=== PATIENT | female | born 1990 | race Caucasian/White ===

== ENCOUNTER 2016-08-02 02:16 | Emergency (ER) | payer SELFPAY ==
[~2016-08-02] VITALS: Ht 152.4 cm; Wt 52.5 kg
[2016-08-02 02:19] VITALS: Ht 152.4 cm; Wt 52.5 kg
--- NOTE | 2016-08-02 04:23 | ERD ---
ER Documentation Chief Complaint Date/Time DATE: 08/02/16 TIME: 04:20 Chief Complaint redness to both eyes x 1 day HPI 26-year-old female presents here in emergency department for complaints of bilateral eye redness started yesterday. It started with one eye, right eye, then the left eye also got the same symptoms. Patient has been having purulent discharge from both eyes. Patient denies any eye pain. Patient complaining of itching from both eyes. Patient denies any vision changes. Patient denies any foreign body sensation. She did not take any medications of symptoms. ROS All systems reviewed and are negative except as per history of present illness. Medications Home Meds Reported Medications [none] Unknown Strength No Conflict Check 08/02/16 Allergies Allergies: Coded Allergies: No Known Allergy (Unverified , 08/02/16) PMhx/Soc Medical and Surgical Hx: pt denies Medical Hx, pt denies Surgical Hx History of Surgery: No Anesthesia Reaction: No Hx Neurological Disorder: No Hx Respiratory Disorders: No Hx Cardiac Disorders: No Hx Psychiatric Problems: No Hx Miscellaneous Medical Probl: No (PT. DENIES MEDICAL AND SURGICAL HX.) Hx Alcohol Use: No Hx Substance Use: No Hx Tobacco Use: No Smoking Status: Never smoker FmHx Family History: No coronary disease, No diabetes, No other Physical Exam Vitals Vital Signs Date Time Temp Pulse Resp B/P Pulse Ox O2 Delivery O2 Flow Rate FiO2 08/02/16 02:19 98.3 87 20 135/69 100 Physical Exam GENERAL: The patient is well developed and appropriate for usual state of health, in no apparent distress. HEENT: Atraumatic. Bilateral conjunctiva noted to be erythematous with purulent discharge from both eyes. Bilateral eyes are PERRL EOM intact. Ears: Normal tympanic membrane, no erythema or bulging. No ear canal swelling. No ear discharge. Nose: normal nasal turbinates, no erythema or swelling. Normal nasal discharge. Throat: oropharynx clear. No tonsillar swelling or tonsillar exudates. No lymphadenopathy. CHEST: Clear to auscultation bilaterally. There are no rales, wheezes or rhonchi. HEART: Regular rate and rhythm. No murmurs, clicks, rubs or gallops. No S3 or S4. ABDOMEN: Soft, nontender and nondistended. Good bowel sounds. No rebound or guarding. No gross peritonitis. No gross organomegaly or masses. No Johnson sign or McBurney point tenderness. BACK: No midline or flank tenderness. EXTREMITIES: Equal pulses bilaterally. There is no peripheral clubbing, cyanosis or edema. No focal swelling or erythema. Full range of motion. Grossly neurovascularly intact. NEURO: Alert and oriented. Cranial nerves 2-12 intact. Motor strength in all 4 extremities with 5/5 strength. Sensation grossly intact. Normal speech and gait. SKIN: There is no apparent rash or petechia. The skin is warm and dry. HEMATOLOGIC AND LYMPHATIC: There is no evidence of excessive bruising or lymphedema. No gross cervical, axillary, or inguinal lymphadenopathy. Procedures/MDM Medical decision making: Patient's symptoms most likely consistent with bilateral conjunctivitis, bacterial, no symptoms of any other eye emergencies at this time. No vision changes. No foreign body sensation. No suspicion for retinal detachment, acute closed angle glaucoma. Patient was given for Polytrim eyedrops, is advised to avoid itching the eyes, was given Naphcon ophthalmic solution, is advised to follow-up with primary care doctor in 2-3 days, contagious within 24 hours, patient was advised to return to emergency department for any worsening symptoms. Departure Diagnosis: Primary Impression: Bacterial conjunctivitis of both eyes Condition: Stable Patient Instructions: Conjunctivitis, Bacterial Additional Instructions: . Patient was given for Polytrim eyedrops, is advised to avoid itching the eyes , was given Naphcon ophthalmic solution, is advised to follow-up with primary care doctor in 2-3 days, contagious within 24 hours, patient was advised to return to emergency department for any worsening symptoms. OSWALDO GLOVER NP Aug 02, 2016 04:22
[2016-08-02] MEDS ORDERED: NAPH15DR22 BOTH EYES (04:24)
[2016-08-02] MEDS ORDERED: POLY10DR19 BOTH EYES (04:24)
== END 2016-08-02 04:49 | disposition home or self-care (01) ==
LOC: FTE 02:16
DX: H10.9 Unspecified conjunctivitis (principal)
CPT/HCPCS: 99283